=== PATIENT | male | born 1970 | race Caucasian/White ===

== ENCOUNTER 2016-05-16 14:57 | Emergency (ER) | payer MEDICAID ==
[~2016-05-16] VITALS: Ht 172.7 cm; Wt 103.4 kg
[~2016-05-16 14:57] MED LIST: ASPIRIN 81MG TA81 MG PO; ASPIRIN CHILDRE81 MG PO; CIPRO 500MG TA500 MG PO; CIPROFLOXACIN500 MG OR; FLAGYL 500MG.500 MG PO; FLAGYL500 M1 PO; FLAGYL500 MG PO; FLINTSTONES1 CTB PO; HYDROCODONE1 TABLET PO; LEVAQUIN500 MG PO; MEDROL 4MG. DOSE4 MG PO; METFORMIN 500M500 M1 PO; METRONIDAZOLE500 MG PO; MOVIPREP PO; NEOMYCIN SULFA500 MG PO; PRILOSEC OTC20 MG PO; PRILOSEC20 MG PO; PRILOSEC40 MG PO; TESSALON PERLE100 MG PO; VICODIN 5/500 T1 TAB PO; ZITHROMAX Z-PA250 M2 PO
--- NOTE | 2016-05-16 15:45 | Emergency Room Report ---
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 N Clinical Suspician of Infection? N Mental Status: 1 - Regular (Normal Baseline) Sepsis Risk:Low Sepsis Risk Have you (or family members/close friends) recently traveled outside the [place]? N If Yes, where/when: Have you had exposure to infectious disease within the past month? N TB? Other? Specify: Sharp, constant chest pain for the past four days. Reports a history of panic attacks. Denies calf pain. No kurtis SOB. Has had some occasional muscle spasms recently, but no fever. Also reports intermittently feeling lightheaded. No cephalgia. Has blurred vision occasionally. Is not taking his Metformin consistently. ALLERGIES Coded Allergies: diatrizoate meglumine (From GASTROGRAFIN) (Mild, 07/01/15) diatrizoate sodium (From GASTROGRAFIN) (Mild, 07/01/15) Home Medications Reported Medications Metformin HCl (Metformin) 750 MG PO DAILY #60 TAB OMEPRAZOLE MAGNESIUM (Prilosec OTC) 20 MG PO DAILY ASPIRIN (Aspirin) 81 MG PO DAILY History Medical History General CAD? No Angina: No [place]: No Hypertension? No Hyperlipidemia? Yes CHF? No DVT? No PE? No COPD? No Asthma? No Anemia? No GERD? No Gastric ulcers? No GI Bleed? No Hernia? No Thyroid Problems? No Hypothyroidism? No CVA? No Seizures? No Diabetes? Yes Insulin Dependent: No Insulin Pump: No Home FSBS? No Renal Insuffiency? No End Stage Renal Disease? No UTI? No Stones? Yes BPH? No GB Disease: No Nephritic Syndrome? No Asplenia? No Hepatitis? No Sickle Cell Disease? No Arthritis? No Migraines? No Cataracts? No Glaucoma? No MRSA? No HIV? No TB? No Anxiety? No Depression? No Cancer? No More? Yes Additional hx: DIVERTICULITIS Immunization Hx DT/Tetanus 5-10 Years Ago Flu REFUSES Pneumonia REFUSES Surgical Hx Previous Surgery?Y APPENDECTOMY 1990 COLONSCOPY 04/2009 UGI 04/2009 COLON RESECTION Family History Family Hx Diabetes Yes CAD No Hypertension No Hyperlipidemia Yes Cancer Yes TB No Social History Smoking Hx Smoker: Never Smoker Tobacco: No Alcohol Alcohol: Yes Review of Systems All Other Systems Reviewed and Negative ENT nose congestion. Cardiovascular chest pain Musculoskeletal see HPI Psychiatric/Neurological see HPI Physical Exam Vital Signs Vital Signs Date Time Temp Pulse Resp B/P Pulse O2 O2 Flow FiO2 Ox Delivery Rate 05/16 1523 98 05/16 1458 98.2 78 18 146/96 100 General Appearance normal appearance, WD/WN, no apparent distress Eye Exam - bilateral eye normal exam, bilateral eye PERRL, bilateral eye EOMI (no diplopia) Ear, Nose, Throat abnormal TM (R), abnormal TM (L) (serous OM B; OP wet) Neck normal inspection, non-tender, supple, full range of motion Respiratory Status Yes: trachea midline, chest symmetrical, non tender chest. No: respiratory distress, tender on palpation, use of accessory muscles, pain on inspiration, pain on expiration, productive cough, non productive cough. Lung Sounds bilateral: normal breath sounds, lungs clear. Cardiovascular normal exam, regular rate/rhythm, no peripheral edema, no gallop, no JVD, no murmur, no rub, normal peripheral pulses Gastrointestinal normal bowel sounds, normal exam, non tender, soft, no organomegaly, no guarding, no rebound Extremities non-tender, normal range of motion, normal inspection, normal capillary refill, no calf tenderness Neurologic alert, normal exam, no motor/sensory deficits, oriented x 3 (F to N normal refueling rampman equal), alert, speech clear and fluent Glascow Coma Scale Glascow Coma Scale Response Value EYE response: 4 Spontaneously 4 MOTOR response: 6 OBEYS 6 VERBAL response: 5 Oriented & Converses 5 Total 15 Reflexes DTR 2+ ankle (R), 2+ ankle (L) Mental status normal mood/affect Skin intact, normal color Lymphatic no adenopathy Medical Decision Making LABS/Meds/Orders Pt receiving controlled substance in ED? No Results/Orders Laboratory Tests 05/16/16 1510: Creatine Kinase 56, CK-MB (CK-2) Rel Index 2.3, CK and CKMB Interp 1.3, Troponin I < 0.02 05/16/16 1510: Sodium 136, Potassium 4.2, Chloride 101, Carbon Dioxide 24, BUN 8, Creatinine 1.1, Estimated Creat Clear 120, Estimated GFR (MDRD) 71, Glucose 166 H, Calcium 9.5, Total Bilirubin 0.3, AST 36, ALT 54, Alkaline Phosphatase 89, Total Protein 8.3 H, Albumin 4.2, Globulin 4.1 H, Albumin/Globulin Ratio 1.0 L, WBC 5.8, RBC 4.32 L, Hgb 9.0 L, Hct 30.5 L, MCV 70.5 L, RDW 17.7 H, Plt Count 284, MPV 8.5, Gran % 54.6, Gran # 3.1, Lymphocytes % 34.0, Monocytes % 5.8, Eosinophils % 4.3, Basophils % 1.4, Lymphocytes # 2.0, Monocytes # 0.3, Eosinophils # 0.3, Basophils # 0.1, PUBS MCHC 29.5 L, MCH 20.8 L Current Medication Orders Sig/Ravi Start time Last Medication Dose Route Stop Time Status Admin Aspirin 324 MG ONCE ONE 05/16 1530 DC 05/16 PO 05/16 1531 1545 Sodium Chloride 10 ML PRN PRN 05/16 1530 AC IV 05/17 1518 Aspirin 0 .STK-MED ONE 05/16 1529 DC .ROUTE Orders Procedure Date/time Status DIET-NOTHING BY MOUTH 05/16 D Active CARDIAC ENZYMES 05/16 1900 Active CARDIAC ENZYMES 05/16 1600 Complete 12 LEAD EKG-JUAN MANUEL (INITIAL) 05/16 1530 Active ELECTROCARDIOGRAM REQUEST 05/16 1520 Active PULSE OXIMETRY REQUEST 05/[address] HEAD REQ 05/16 1520 Complete CHEST(2 VIEWS-NOT PORTABLE) 05/16 1520 Active IV SALINE LOCK 05/16 1520 Active OXYGEN PER NURSE 05/16 1520 Active BRAIN PICKER 05/16 1520 Active COMPLETE METABOLIC PANEL 05/16 1520 Complete CBC WITH AUTO DIFF 05/16 1520 Complete CM/EKG CM/EKG EKG rate, NSR, rhythm, no evid. of ischemic chgs, no ectopy, normal QRS, normal [place], normal EKG (80) XRAY/CT/US XRAY/CT/US XRAY chest XR interpretation by reviewed by me Xray Results normal/NAD, no infiltrates, normal heart size, normal lung inflation sonido CT head CT interpretation by reviewed by me (report reviewed) Time results known: 1620 CT Results normal/NAD Departure Departure Time of Disposition 1621 Disposition DC Home or Self Care(routine) Clinical Impression Primary Impression: Atypical chest pain Secondary Impressions: Acute allergic serous otitis media Qualifiers: Laterality: bilateral Qualified Code: H65.113 - Acute and subacute allergic otitis media (mucoid) (sanguinous) (serous), bilateral Lightheadedness Condition STABLE Patient Instructions DI for Atypical Chest Pain Additional Instructions Get back on your Metformin as prescribed/on a regular basis; keep a food and symptom and blood sugar journal; monitor blood pressure and bring results to your family doctor at follow up in two to three weeks. Recommend Zyrtec or Claritin over the counter to diminish fluid behind inner ears, to help with lightheadedness. Discharge Counseling Counseled pt/family regarding diagnosis, test results, medications/RX, home care, follow up needs ED Critical Care Critical Care No at [phone]
--- NOTE | 2016-05-16 16:14 | RADIOLOGY REPORT PS360 ---
CT HEAD W/O CONTRAST HISTORY: ARM NUMBNESS ORDERING PHYSICIAN: YUDITH ROCHA PATIENT AGE: 46 years COMPARISON: None TECHNIQUE: Axial images obtained without contrast. Brain and bone windows reviewed. FINDINGS: No midline shift, mass effect, intracranial hemorrhage, hydrocephalus, or extra-axial fluid collection is evident. The calvarium has an unremarkable appearance. No mastoid effusion. The visualized paranasal sinuses are unremarkable. IMPRESSION: Negative CT head without contrast. No acute finding.
[2016-05-16 17:02] VITALS: BP 135/87
--- NOTE | 2016-05-17 08:21 | RADIOLOGY REPORT PS360 ---
CHEST(2 VIEWS-NOT PORTABLE) HISTORY: CHEST PAIN ORDERING PHYSICIAN: Ansley Rangel MD PATIENT AGE: 46 years COMPARISON: None available FINDINGS: The cardiomediastinal silhouette and pulmonary vascularity are within normal limits. The lungs are clear without infiltrates, suspicious nodules, or pleural effusions. No acute bony abnormalities. IMPRESSION: Negative chest, no acute finding
== END 2016-05-16 17:03 | disposition home or self-care (01) ==
LOC: ER 14:57
PROVIDERS: Emergency Medicine
DX: R07.89 Other chest pain (principal); H65.113 Acute and subacute allergic otitis media (mucoid) (sanguinous) (serous), bilateral; R42 Dizziness and giddiness; E11.9 Type 2 diabetes mellitus without complications

== ENCOUNTER 2017-02-12 13:20 | Emergency (ER) | payer MEDICAID ==
[~2017-02-12] VITALS: Ht 172.7 cm; Wt 79.4 kg
[~2017-02-12 13:20] MED LIST changes: +ANUSOL-HC2.5% EX
--- OUTSIDE RECORDS SUMMARY | 2017-02-12 14:01 | External Medical Summary Rpt | CCD ---
Author Author , ORESTES CARLISLE Address Unknown Phone [email or web address] Care Team Providers Care Clearance Diver Name Role Phone [facility] Unavailable Unavailable [facility], [facility] BRANDO MICHAELS Unavailable Unavailable [facility] Unavailable Unavailable [facility], [facility] Unavailable Unavailable [facility]PITAL P, [facility], PHAN Unavailable Unavailable [facility] Unavailable Unavailable [facility], [facility] [employer] Unavailable Unavailable [facility] [employer] [facility] [employer] Unavailable Unavailable [facility] [employer] JUAN MANUEL ZAMBRANO JR, JR Unavailable Unavailable [facility] Unavailable Unavailable [facility] Unavailable Unavailable [facility] Un[facility]available [facility], [facility], [facility] REES[facility], REESOR Unavailable Unavailable KESHAWN LIAO Unavailable Unavailable KESHAWN LIAO Unavailable Unavailable Purpose Continuity of Care Document - 06-10-2013 through 2016 Problems Code Diagnosis DOS Provider Status E119 TYPE 2 10-20-2016 [facility] WITHOUT COMPLICATIO NS K644 RESIDUAL 10-20-2016 [facility] K649 UNSPECIFIED 10-20-2016 [facility] HEMORRHOIDS [facility] K2270 BARRETTS 08-31-2016 [facility] WITHOUT DYSPLASIA R12 HEARTBURN 08-24-2016 [facility] Z1211 ENCOUNTER 08-24-2016 [facility] MALIGNANT MEDICAL NEOPLASM OF GROUP COLON Z9049 ACQUIRED 08-24-[address] 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 UNSPECIFIED Z0000 ENCOUNTER 07-05-2016 [facility] GEN ADULT MED EXAM W/O ABNORMAL FIND Z0100 ENCOUNTER 06-01-2016 [facility] EX[facility] EYES & VISION W/O ABNORMAL FIND [id number] ACUTE & 05-16-2016 [facility] P OTITS MEDIA BILATERAL R0789 OTHER CHEST 05-16-2016 [facility] P R079 CHEST PAIN 05-16-2016 [place] UNSPECIFIED [facility] R200 ANESTHESIA 05-16-2016 [place] OF [facility] R42 DIZZINESS 05-16-2016 [facility] P Allergies, Adverse Reactions, Alerts Clinical Alert Notifications Alert Diabetes: no A1C in the last 6 months Diabetes: no influenza vaccine in the last 365 days Diabetes: no urine protein screening in the last 365 days Medications Na ND Rx Da Fi Fi Am Da Di Ph RX Ph St me C No te ll ll ou ys ag ar # ys at rm s nt no ma ic us Or Da si cy ia de te s n re d OM 00 09 10 30 30 00 RI Ac EP 78 -2 -2 .0 00 TE ti RA 12 7- 0- 00 01 ve ZO 23 20 20 18 AI LE 40 17 17 26 D [address] AR MA 40 CY MG #3 93 CA 8 PS UL E AL 00 09 10 30 30 00 RI Ac PA 37 -2 -2 .0 00 TE ti AZ 84 7- 0- 00 01 ve OL 00 20 20 19 AI AM 30 17 17 72 D 5 27 PH 0. AR 5 MA MG CY TA #3 BL 93 ET 8 RA 11 09 10 59 1 00 RI Ac 82 -2 -2 2. 00 TE ti CI 23 2- 0- 00 01 ve TR 33 20 20 0 20 AI AT 00 17 17 08 D E 0 01 PH OF AR MA MA CY GN ES #3 IA [address] ME 00 09 10 2. 1 00 RI Ac TO 09 -2 -2 00 00 TE ti CL 32 2- 0- 0 01 ve OP 20 20 20 20 AI RA 40 17 17 08 D OK 1 02 PH DE AR 5 MA CY MG #3 TA 93 BL 8 ET RA 11 09 10 5. 1 00 RI Ac 82 -2 -2 00 00 TE ti BI 23 2- 0- 0 01 ve SA 34 20 20 20 AI CO 07 17 17 08 D DY 0 00 PH L AR EC MA 5 CY MG #3 93 TA 8 BL ET ME 42 08 09 60 30 00 RI Ac TF 80 -2 -2 .0 00 TE ti OR 60 8- 2- 00 01 ve OK 31 20 20 19 AI N 50 17 17 71 D HC 5 79 PH L AR 1, MA 00 CY 0 MG #3 93 TA 8 BL ET SE 69 08 09 30 30 00 RI Ac RT 09 -2 -2 .0 00 TE ti RA 70 8- 2- 00 01 ve LI 83 20 20 19 AI NE 40 17 17 71 D 2 80 PH HC AR L MA 50 CY MG #3 93 TA 8 BL ET AL 00 08 09 30 30 00 RI Ac PA 37 -2 -2 .0 00 TE ti AZ 84 8- 2- 00 01 ve OL 00 20 20 19 AI AM 30 17 17 72 D 5 27 PH 0. AR 5 MA MG CY TA #3 BL 93 ET 8 OM 00 08 09 30 30 00 RI Ac EP 78 -3 -2 .0 00 TE ti RA 12 0- 2- 00 01 ve ZO 23 20 20 18 AI LE 40 17 17 26 D [address] AR MA 40 CY MG #3 93 CA 8 PS UL E PA 10 08 09 28 15 00 WA Ac OC 63 -0 -0 .3 00 L- ti TO 10 8- 1- 50 07 MA ve SO 40 20 20 49 RT L- 70 17 17 65 HC 1 08 PH AR 2. MA 5% CY CR #5 EA 91 M OM 00 07 08 30 30 00 RI Ac EP 78 -2 -2 .0 00 TE ti RA 12 8- 5- 00 01 ve ZO 23 20 20 18 AI LE 40 17 17 26 D [address] AR MA 40 CY MG #3 93 CA 8 PS UL E AL 00 07 08 30 30 00 RI Ac PA 37 -2 -2 .0 00 TE ti AZ 84 8- 5- 00 01 ve OL 00 20 20 18 AI AM 30 17 17 99 D 5 18 PH 0. AR 5 MA MG CY TA #3 BL 93 ET 8 BU 00 06 08 6. 3 00 RI Ac PA 18 -2 -0 00 00 TE ti OP 50 8- 4- 0 01 ve IO 41 20 20 19 AI N 00 17 17 15 D HC 1 29 PH L AR SR MA CY 10 0 #3 MG 93 8 TA BL ET OM 00 06 07 30 30 00 RI Ac EP 78 -2 -2 .0 00 TE ti RA 12 9- 8- 00 01 ve ZO 23 20 20 18 AI LE 40 17 17 26 D [address] AR MA 40 CY MG #3 93 CA 8 PS UL E ME 42 06 07 60 30 00 RI Ac TF 80 -2 -2 .0 00 TE ti OR 60 9- 8- 00 01 ve OK 31 20 20 18 AI N 50 17 17 14 D HC 5 03 PH L AR 1, MA 00 CY 0 MG #3 93 TA 8 BL ET AL 00 06 07 30 30 00 RI Ac PA 37 -2 -2 .0 00 TE ti AZ 84 9- 8- 00 01 ve OL 00 20 20 18 AI AM 30 17 17 99 D 5 18 PH 0. AR 5 MA MG CY TA #3 BL 93 ET 8 HY 62 06 07 [address] 55 -3 -2 .0 00 L- ti OC 90 0- 8- 00 07 MA ve OR 43 20 20 49 RT TI 13 17 17 65 SO 0 08 PH NE AR MA 2. CY 5% #5 CR 91 EA M OM 00 06 06 30 30 00 RI Ac EP 78 -0 -3 .0 00 TE ti RA 12 2- 0- 00 01 ve ZO 23 20 20 18 AI LE 40 17 17 [address] D [address] AR MA 40 CY MG #3 93 CA 8 PS UL E VE 57 05 06 60 30 00 RI Ac NL 23 -2 -2 .0 00 TE ti AF 70 6- 3- 00 01 ve AX 17 20 20 18 AI IN 50 17 17 54 D E 1 56 PH HC AR L MA 75 CY MG #3 93 TA 8 BL ET AL 00 05 06 30 30 00 RI Ac PA 37 -2 -2 .0 00 TE ti AZ 84 6- 3- 00 01 ve OL 00 20 20 18 AI AM 30 17 17 56 D 5 12 PH 0. AR 5 MA MG CY TA #3 BL 93 ET 8 ME 42 05 06 60 30 00 RI Ac TF 80 -2 -1 .0 00 TE ti OR 60 2- 6- 00 01 ve OK 22 20 20 18 AI N 10 17 17 14 D HC 5 03 PH L AR 1, MA 00 CY 0 MG #3 93 TA 8 BL ET OM 00 05 06 30 30 00 RI Ac EP 78 -0 -0 .0 00 TE ti RA 12 4- 2- 00 01 ve ZO 23 20 20 18 AI LE 40 17 17 [address] AR MA 40 CY MG #3 93 CA 8 PS UL E ME 42 04 05 60 30 00 RI Ac TF 80 -2 -1 .0 00 TE ti OR 60 5- 9- 00 01 ve OK 22 20 20 18 AI N 10 17 17 14 D HC 5 03 PH L AR 1, MA 00 CY 0 MG #3 93 TA 8 BL ET TR 50 04 05 30 30 00 RI Ac AZ 11 -2 -1 .0 00 TE ti OD 10 5- 9- 00 01 ve ON 43 20 20 18 AI E 40 17 17 14 D 10 1 04 PH 0 AR MG MA CY TA BL #3 ET 93 8 AL 00 04 05 30 30 00 RI Ac PA 37 -2 -1 .0 00 TE ti AZ 84 5- 9- 00 01 ve OL 00 20 20 18 AI AM 30 17 17 14 D 5 61 PH 0. AR 5 MA MG CY TA #3 BL 93 ET 8 AL 00 03 04 30 30 00 RI Ac PA 37 -1 -0 .0 00 TE ti AZ 84 5- 7- 00 01 ve OL 00 20 20 17 AI AM 30 17 17 54 D 5 26 PH 0. AR 5 MA MG CY TA #3 BL 93 ET 8 AL 00 02 30 30 00 WA Ac PA 22 -0 -0 .0 00 L- ti AZ 82 4- 3- 00 04 MA ve OL 02 20 20 52 RT AM 95 17 17 92 0 62 PH 0. AR 5 MA MG CY TA #5 BL 91 ET Results Labs Lab Lab Date Result Refere Interp Status Commen Order Detail nces retati t Range on Bas Metab 1999 Pnl SerPl (01-25-2017 07:58) Glucose 156 70-130 complet BldC 017 mg/dL ed Glucomt 07:58 [facility] Comment: Serial Number: [id number]: [id number] Bas Metab 1999 Pnl SerPl (08-31-2016 07:16) Glucose 162 70-130 complet BldC 017 mg/dL ed Glucomt 07:16 [facility] Comment: Serial Number: [id number] Post Office Manager: [id number] CBC W Auto Differential panel in Blood (06-10-2013 13:30) 02-18-2 6.34.53 0.00T Normal complet 014 15.1449 HOUS - ed 13:30 6.733.3 0.20T 34.411. HOUS 427015. 733.15. 22.50.5 03.702. 100.300 .200.00 Procedures Procedure DOS [place] [address] [facility] PATHOLOGY GROSS&KENNETH ROSCOPIC EXAM TSTG ANS 99782 KESHAWN LIAO FUNCJ 7 VASOMOTOR ADRENERGI C INNERVAJ TSTG ANS 70332 KESHAWN LIAO FUN 7 CARDIOVAG AL INNERVAJ PARASYMP RHYTHM 29049 KESHAWN LIAO ECG 1-3 7 LEADS W/INTERPR ETATION & REPORT COMPREHEN 38226 [facility] SIVE 7 [place], [place], [place] [address] [facility] THYROID 7 [place], STIMULATI INC. INC. NG HORMONE TSH HEMOGLOBI 32484 [facility] N 7 [place], GLYCOSYLA INC. INC. GINO A1C LIPID 44342 [facility] PANEL 7 [place], INC. INC. OPHTH 94218 [facility] 7 XM&EVAL COMPRE NEW PT 1/> VST DETERMINA [address] [facility] TION 7 REFRACTIV E STATE ECG 31567 MARY ZAMBRANO JR ROUTINE 7 [facility] W/LEAST P 12 LDS I&R ONLY ECG 97801 MARY HERNANDEZ ROUTINE 7 [facility] ECG INC INC W/LEAST 12 LDS TRCG ONLY W/O I&R GLUC BLD 06533 MARY HERNANDEZ GLUC MNTR 7 [facility] DEV INC INC CLEARED FDA SPEC HOME USE COMPREHEN 27226 MARY HERNANDEZ SIVE 7 [facility] METABOLIC INC INC PANEL RADIOLOGI 66407 MARY HERNANDEZ C EXAM 7 [facility] CHEST 2 INC INC VIEWS FRONTAL&L ATERAL CREATINE 98627 MARY HERNANDEZ KINASE 7 [place] [address] MARY HERNANDEZ HEAD/BRAI 7 [facility] N W/O INC INC CONTRAST MATERIAL UNCLASSIF J3490 MARY HERNANDEZ IED DRUGS 7 [facility] INC INC CREATINE 19312 MARY HERNANDEZ KINASE MB 7 [facility] [place] [address] MARY PRESLEYON TROPONIN 7 [facility] QUANTITAT INC INC MAHESH BLOOD 28002 MARY MARY COUNT 7 [facility] COMPLETE INC INC AUTO&AUTO DIFRNTL WBC Encounters Encounter Start End Date Code Location Performer Type Date HOSPITAL MARY [facility] 7 [facility] OUTPATIEN INC T EMERGENCY 81737 [facility]/MODER SEVERITY EMERGENCY 24633 JOE PHAN 7 7 PHYSICIAN DEPARTMEN S, PLL T VISIT MODERATE SEVERITY OFFICE 38592 [facility] CONS[facility] 7 7 [facility] PATIENT 60 MIN OFFICE 65387 KESHAWN MORRISPATICAROLINA 7 7 T VISIT 15 MINUTES PERIODIC 19181 KESHAWN LIAO PREVENTIV 7 7 E MED EST PATIENT 40-64YRS EMERGENCY 50473 MARY 7 7 [facility] DEPARTMEN INC T VISIT MODERATE SEVERITY HOSPITAL MARY Forrest 7 [facility] OUTPATIEN INC T
--- OUTSIDE RECORDS SUMMARY | 2017-02-12 14:01 | External Medical Summary Rpt | CCD ---
Author Author , ORESTES CARLISLE Address Unknown Phone [email or web address] Care Team Providers Care Hole Digger Operator Name Role Phone [facility] Unavailable Unavailable MEDICAL GROUP, [facility] BRANDO MICHAELS Unavailable Unavailable [facility] Unavailable Unavailable [facility], [facility] Unavailable Unavailable HOSPITAL P, [facility] P PHAN, PHAN Unavailable Unavailable [facility] Unavailable Unavailable IMAGING ASS, [facility] IM[facility] [employer] [employer] Unavailable Unavailable [facility] [employer] [employer] [facility] [employer] [employer] Unavailable Unavailable [facility] [employer] [employer] JUAN MANUEL ZAMBRANO JR, JR Unavailable Unavailable [facility] Unavailable Unavailable [facility] Unavailable Unavailable [facility] Unavailable [facility]available [facility], Unavailable Unavailable PLLC, [facility], [facility] REESOR, REESOR Unavailable Unavailable KESHAWN LIAO Unavailable Unavailable KESHAWN LIAO Unavailable Unavailable Purpose Continuity of Care Document - 06-10-2013 through 2016 Problems Code Diagnosis DOS Provider Status E119 TYPE 2 10-20-2016 [facility] MELLITUS INC WITHOUT COMPLICATIO NS K644 RESIDUAL 10-20-2016 [facility] L SKIN TAGS INC K649 UNSPECIFIED 10-20-2016 [facility] HEMORRHOIDS [facility] K2270 BARRETTS 08-31-2016 [facility], ESOPHAGUS LLC WITHOUT DYSPLASIA R12 HEARTBURN 08-24-2016 [facility] MEDICAL GROUP Z1211 ENCOUNTER 08-24-2016 [facility] MALIGNANT MEDICAL NEOPLASM OF GROUP COLON Z9049 ACQUIRED 08-24-2016 [facility] SPEC PARTS MEDICAL DIGESTIVE GROUP TRACT G9009 OTHER 08-16-2016 K[facility]WN IDIOPATHIC PERIPHERAL AUTONOMIC NEUROPATHY I10 ESSENTIAL 08-15-2016 [facility] PRIMARY HYPERTENSIO N K219 GASTRO-ESOP 08-15-2016 K[facility]HAWN H REFLUX DISEASE WITHOUT ESOPHAGITIS E7800 PURE 07-05-2016 [facility] [employer] INC. TEROLEMIA UNSPECIFIED J301 ALLERGIC 07-05-2016 K[facility]WN RHINITIS DUE TO POLLEN H55771 BARRETTS 07-05-2016 K[facility] ESOPHAGUS WITH LOW GRADE DYSPLASIA R5382 CHRONIC 07-05-2016 [facility] [employer]IGUE [employer], INC. UNSPECIFIED Z0000 ENCOUNTER 07-05-2016 K[facility]WN GEN ADULT MED EXAM W/O ABNORMAL FIND Z0100 ENCOUNTER 06-01-2016 [facility] EXAM EYES & VISION W/O ABNORMAL FIND H61109 ACUTE & 05-16-2016 [facility] P OTITS MEDIA BILATERAL R0789 OTHER CHEST 05-16-2016 [facility] P R079 CHEST PAIN 05-16-2016 [place] UNSPECIFIED MEDICAL IMAGING ASS R200 ANESTHESIA 05-16-2016 [place] OF SKIN [facility]ICAL IMAGING ASS R42 DIZZINESS 05-16-2016 [facility] P Allergies, Adverse Reactions, Alerts Clinical Alert [...] 09 10 30 30 00 RI Ac VA 37 -2 -2 .0 00 TE ti [...] AI RA 40 17 17 08 D IA 1 02 PH DE AR 5 MA [...] OR 60 8- 2- 00 01 ve IA 31 20 20 19 AI N 50 [...] 08 09 30 30 00 RI Ac VA 37 -2 -2 .0 00 TE ti [...] #3 93 CA 8 PS UL E VA 10 08 09 28 15 00 WA [...] 07 08 30 30 00 RI Ac VA 37 -2 -2 .0 00 TE ti AZ 84 8- 5- 00 01 ve OL 00 20 20 18 AI AM 30 17 17 99 D 5 18 PH 0. AR 5 MA MG CY TA #3 BL 93 ET 8 BU 00 06 08 6. 3 00 RI Ac VA 18 -2 -0 00 00 TE ti [...] OR 60 9- 8- 00 01 ve IA 31 20 20 18 AI N 50 17 17 14 D HC 5 03 PH L AR 1, MA 00 CY 0 MG #3 93 TA 8 BL ET AL 00 06 07 30 30 00 RI Ac VA 37 -2 -2 .0 00 TE ti [...] 05 06 30 30 00 RI Ac VA 37 -2 -2 .0 00 TE ti [...] OR 60 2- 6- 00 01 ve IA 22 20 20 18 AI N 10 [...] OR 60 5- 9- 00 01 ve IA 22 20 20 18 AI N 10 [...] 04 05 30 30 00 RI Ac VA 37 -2 -1 .0 00 TE ti AZ 84 5- 9- 00 01 ve OL 00 20 20 18 AI AM 30 17 17 14 D 5 61 PH 0. AR 5 MA MG CY TA #3 BL 93 ET 8 AL 00 03 04 30 30 00 RI Ac VA 37 -1 -0 .0 00 TE ti AZ 84 5- 7- 00 01 ve OL 00 20 20 17 AI AM 30 17 17 54 D 5 26 PH 0. AR 5 MA MG CY TA #3 BL 93 ET 8 AL 00 02 30 30 00 WA Ac VA 22 -0 -0 .0 00 L- ti [...] complet BldC 017 mg/dL ed Glucomt 07:58 [facility] Comment: Serial Number: [id number]: [id number] Bas Metab 1999 Pnl SerPl (08-31-2016 07:16) Glucose 162 70-130 complet BldC 017 mg/dL ed Glucomt 07:16 [facility] Comment: Serial Number: [id number] Substitute Crossing Guard: [id number] CBC W Auto Differential panel in Blood (06-10-2013 13:30) 02-18-2 6.34.53 0.00T Normal complet 014 15.1449 HOUS - ed 13:30 6.733.3 0.20T 34.411. HOUS 666565. 733.15. 22.50.5 03.702. 100.300 .200.00 Procedures Procedure DOS [place] [address] [facility], BRANDO SURG 7 LLC PATHOLOGY GROSS&KENNETH ROSCOPIC EXAM TSTG ANS 33494 KESHAWN LIAO FUNCJ 7 VASOMOTOR ADRENERGI C INNERVAJ TSTG ANS 60634 KESHAWN LIAO FUN 7 CARDIOVAG AL INNERVAJ PARASYMP RHYTHM 33906 KESHAWN LIAO ECG 1-3 7 LEADS W/INTERPR ETATION & REPORT COMPREHEN 84326 [facility] OF SIVE 7 [place], [place], [place] [address] LAB[facility] OF [facility] OF THYROID 7 [place], STIMULATI INC. INC. NG HORMONE TSH HEMOGLOBI 30262 LAB[facility] OF LABONE OF N 7 [place], [place], GLYCOSYLA INC. INC. GINO A1C LIPID 54021 LAB[facility] OF [facility] OF PANEL 7 [place], INC. INC. OPHTH 35530 [facility] 7 XM&EVAL COMPRE NEW PT 1/> VST DETERMINA 03128 [facility] TION 7 REFRACTIV E STATE ECG 97324 MARY ZAMBRANO JR ROUTINE 7 [facility] W/LEAST P 12 LDS I&R ONLY ECG 84958 MARY HERNANDEZ ROUTINE 7 [facility] ECG INC INC W/LEAST 12 LDS TRCG ONLY W/O I&R GLUC BLD 54970 MARY HERNANDEZ GLUC MNTR 7 [facility] DEV INC INC CLEARED FDA SPEC HOME USE COMPREHEN 66512 MARY HERNANDEZ SIVE 7 [facility] METABOLIC INC INC PANEL RADIOLOGI 22205 MARY HERNANDEZ C EXAM 7 [facility] CHEST 2 INC INC VIEWS FRONTAL&L ATERAL CREATINE 12739 MARY HERNANDEZ KINASE 7 [place] [address] MARY HERNANDEZ HEAD/BRAI 7 [facility] N W/O INC INC CONTRAST MATERIAL UNCLASSIF J3490 MARY HERNANDEZ IED DRUGS 7 [facility] INC INC CREATINE 85818 MARY HERNANDEZ KINASE MB 7 [facility] H[facility] [address] MARY PRESLEYON TROPONIN 7 [facility] QUANTITAT INC INC MAHESH BLOOD 52440 MARY MARY COUNT 7 [facility] COMPLETE INC INC AUTO&AUTO DIFRNTL WBC Encounters Encounter Start End Date Code Location Performer Type Date HOSPITAL MARY Forrest 7 [facility] OUTPATIEN INC T EMERGENCY 07058 [facility]IS[facility] LOW/MODER SEVERITY EMERGENCY 03618 JOE PHAN 7 7 PHYSICIAN DEPARTMEN S, PLL T VISIT MODERATE SEVERITY OFFICE 79700 LATTER DAY REESOR CONSULTAT 7 7 HEALTH ION MEDICAL NEW/[facility] GROUP PATIENT 60 MIN OFFICE 74233 KESHAWN [place] 7 7 T VISIT 15 MINUTES PERIODIC 54254 KESHAWN LIAO PREVENTIV 7 7 E MED EST PATIENT 40-64YRS EMERGENCY 88779 MARY 7 7 [facility] DEPARTMEN INC T VISIT MODERATE SEVERITY HOSPITAL MARY Forrest 7 [facility] OUTPATIEN INC T
--- OUTSIDE RECORDS SUMMARY | 2017-02-12 14:03 | External Medical Summary Rpt | CCD ---
Author Author , ORESTES CARLISLE Address Unknown Phone [email or web address] Care Team Providers Care Coagulating Operator Name Role Phone [facility] Unavailable Unavailable MEDICAL GROUP, [facility] BALTAZAR, LEDESMA Unavailable Unavailable BRANDO MICHAELS Unavailable Unavailable [facility] Unavailable Unavailable INC, [facility] Unavailable Unavailable HOSPITAL P, [facility] P PHAN, PHAN Unavailable Unavailable [facility] Unavailable Unavailable IMAGING ASS, [facility] IMAGING [facility] [employer] [employer] Unavailable Unavailable [facility] [employer] [employer] [facility] [employer] [employer] Unavailable Unavailable [facility] [employer] [employer] JUAN MANUEL ZAMBRANO JR, JR Unavailable Unavailable [facility] Unavailable Unavailable [facility] Unavailable Unavailable [facility] Unavailable [facility], Unavailable Unavailable PLLC, [facility], [facility] REESOR, REESOR Unavailable Unavailable KESHAWN LIAO Unavailable Unavailable KESHAWN LIAO Unavailable Unavailable Purpose Continuity of Care Document - 05-16-2016 through 2016 Problems Code Diagnosis DOS Provider Status E119 TYPE 2 10-20-2016 [facility] MELLITUS INC WITHOUT COMPLICATIO NS K644 RESIDUAL 10-20-2016 [facility] SKIN TAGS INC K649 UNSPECIFIED 10-20-2016 [facility] HEMORRHOIDS [facility] K2270 BARRETTS 08-31-2016 [facility] ES[facility]HAG[facility] WITHOUT DYSPLASIA R12 HEARTBURN 08-24-2016 [facility] MEDICAL GROUP Z1211 ENCOUNTER 08-24-2016 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 TEROLEMIA UNSPECIFIED J301 ALLERGIC 07-05-2016 KESHAWN RHINITIS DUE TO POLLEN V26410 BARRETTS 07-05-2016 LIAO ESOPHAGUS WITH LOW GRADE DYSPLASIA R5382 CHRONIC 07-05-2016 [facility] [place] [employer] UNSPECIFIED Z0000 ENCOUNTER 07-05-2016 KESHAWN GEN ADULT MED EXAM W/O ABNORMAL FIND Z0100 ENCOUNTER 06-01-2016 [facility] EXAM EYES & VISION W/O ABNORMAL FIND I20896 ACUTE & 05-16-2016 [facility] P OTITS MEDIA BILATERAL R0789 OTHER CHEST 05-16-2016 [facility] P R079 CHEST PAIN 05-16-2016 [place] UNSPECIFIED [facility]ICAL IMAGING ASS R200 ANESTHESIA 05-16-2016 [place] OF SKIN MEDICAL IM[facility]ING ASS R42 DIZZINESS 05-16-2016 [facility] P Medications Na ND Rx Da Fi Fi Am Da Di Ph RX Ph St me C No te ll ll ou ys ag ar # ys at rm s nt no ma ic us Or Da si cy ia de te s n re d RA 11 09 10 5. 1 00 RI Ac 82 -2 -2 00 00 TE ti BI 23 2- 0- 0 01 ve SA 34 20 20 20 AI CO 07 17 17 08 D DY 0 00 PH L AR EC MA 5 CY MG #3 93 TA 8 BL ET RA 11 09 10 59 1 00 [...] AI RA 40 17 17 08 D FL 1 02 PH DE AR 5 MA CY MG #3 TA 93 BL 8 ET OM 00 09 10 30 30 00 RI Ac EP 78 -2 -2 .0 00 TE ti RA 12 7- 0- 00 01 ve ZO 23 20 20 18 AI LE 40 17 17 26 D [address] AR MA 40 CY MG #3 93 CA 8 PS UL E AL 00 09 10 30 30 00 RI Ac CO 37 -2 -2 .0 00 TE ti [...] CA 8 PS UL E ME 42 08 09 60 30 00 RI Ac TF 80 -2 -2 .0 00 TE ti OR 60 8- 2- 00 01 ve FL 31 20 20 19 AI N 50 [...] 08 09 30 30 00 RI Ac CO 37 -2 -2 .0 00 TE ti AZ 84 8- 2- 00 01 ve OL 00 20 20 19 AI AM 30 17 17 72 D 5 27 PH 0. AR 5 MA MG CY TA #3 BL 93 ET 8 CO 10 08 09 28 15 00 WA [...] 07 08 30 30 00 RI Ac CO 37 -2 -2 .0 00 TE ti AZ 84 8- 5- 00 01 ve OL 00 20 20 18 AI AM 30 17 17 99 D 5 18 PH 0. AR 5 MA MG CY TA #3 BL 93 ET 8 BU 00 06 08 6. 3 00 RI Ac CO 18 -2 -0 00 00 TE ti OP 50 8- 4- 0 01 ve IO 41 20 20 19 AI N 00 17 17 15 D HC 1 29 PH L AR SR MA CY 10 0 #3 MG 93 8 TA BL ET HY 62 06 07 30 [address] 55 -3 -2 .0 00 L- ti OC 90 0- 8- 00 07 MA ve OR 43 20 20 49 RT TI 13 17 17 65 SO 0 08 PH NE AR MA 2. CY 5% #5 CR 91 EA M OM 00 06 07 30 30 00 [...] OR 60 9- 8- 00 01 ve FL 31 20 20 18 AI N 50 17 17 14 D HC 5 03 PH L AR 1, MA 00 CY 0 MG #3 93 TA 8 BL ET AL 00 06 07 30 30 00 RI Ac CO 37 -2 -2 .0 00 TE ti AZ 84 9- 8- 00 01 ve OL 00 20 20 18 AI AM 30 17 17 99 D 5 18 PH 0. AR 5 MA MG CY TA #3 BL 93 ET 8 OM 00 09 26 30 30 00 RI Ac EP 78 -0 -3 .0 00 TE ti RA 12 2- 0- 00 01 ve ZO 23 20 20 18 AI LE 40 17 17 26 D [address] AR MA 40 CY MG #3 93 CA 8 PS UL E AL 00 05 06 30 30 00 RI Ac CO 37 -2 -2 .0 00 TE ti AZ 84 6- 3- 00 01 ve OL 00 20 20 18 AI AM 30 17 17 56 D 5 12 PH 0. AR 5 MA MG CY TA #3 BL 93 ET 8 VE 57 05 06 60 30 00 RI Ac NL 23 -2 -2 .0 00 TE ti AF 70 6- 3- 00 01 ve AX 17 20 20 18 AI IN 50 17 17 54 D E 1 56 PH HC AR L MA 75 CY MG #3 93 TA 8 BL ET ME 42 05 06 60 30 00 RI Ac TF 80 -2 -1 .0 00 TE ti OR 60 2- 6- 00 01 ve FL 22 20 20 18 AI N 10 [...] OR 60 5- 9- 00 01 ve FL 22 20 20 18 AI N 10 [...] 04 05 30 30 00 RI Ac CO 37 -2 -1 .0 00 TE ti AZ 84 5- 9- 00 01 ve OL 00 20 20 18 AI AM 30 17 17 14 D 5 61 PH 0. AR 5 MA MG CY TA #3 BL 93 ET 8 AL 00 03 04 30 30 00 RI Ac CO 37 -1 -0 .0 00 TE ti AZ 84 5- 7- 00 01 ve OL 00 20 20 17 AI AM 30 17 17 54 D 5 26 PH 0. AR 5 MA MG CY TA #3 BL 93 ET 8 AL 00 02 03 30 30 00 WA Ac CO 22 -0 -0 .0 00 L- ti AZ 82 4- 3- 00 04 MA ve OL 02 20 20 52 RT AM 95 17 17 92 0 62 PH 0. AR 5 MA MG CY TA #5 BL 91 ET Procedures Procedure DOS [place] [address] [facility] BRANDO SURG 7 [facility] PATHOLOGY GROSS&KENNETH ROSCOPIC EXAM TSTG ANS 36835 KESHAWN LIAO [facility] 7 VASOMOTOR ADRENERGI C INNERVAJ TSTG ANS 75273 KESHAWN LIAO [facility] 7 CARDIOVAG AL INNERVAJ PARASYMP RHYTHM 40144 KESHAWN LIAO ECG 1-3 7 LEADS W/INTERPR ETATION & REPORT HEMOGLOBI 74027 [facility] OF N 7 [place], [place], GLYCOSYLA INC. INC. GINO A1C COMPREHEN 55375 [facility] OF SIVE 7 [place], [place] [address] LAB[facility] OF [facility] OF THYROID 7 [place], STIMULATI INC. INC. NG HORMONE TSH LIPID 45147 [facility] OF PANEL 7 [place], INC. INC. DETERMINA 99992 [facility]AG BEARD TION 7 REFRACTIV E STATE OPHTH 06329 [facility] 7 XM&EVAL COMPRE NEW PT 1/> VST ECG 17698 MARY HERNANDEZ ROUTINE 7 [facility] ECG INC INC W/LEAST 12 LDS TRCG ONLY W/O I&[place] [address] MARY HERNANDEZ HEAD/BRAI 7 [facility] N W/O INC INC CONTRAST MATERIAL UNCLASSIF J3490 MARY HERNANDEZ IED DRUGS 7 [facility] INC INC CREATINE 50025 MARY HERNANDEZ KINASE 7 [facility] TOTAL INC INC CREATINE 96478 MARY HERNANDEZ KINASE MB 7 [facility] FRACTION INC INC ONLY COMPREHEN 65134 MARY HERNANDEZ SIVE 7 [facility] METABOLIC INC INC PANEL ECG 32909 MARY ZAMBRANO JR ROUTINE 7 [facility] W/LEAST P 12 LDS I&R ONLY GLUC BLD 35919 MARY HERNANDEZ GLUC MNTR 7 [facility] DEV INC [place] [address] MARY HERNANDEZ TROPONIN 7 [facility] QUANTITAT INC INC MAHESH BLOOD 71465 MARY HERNANDEZ COUNT 7 [facility] COMPLETE INC INC AUTO&AUTO DIFRNTL WBC RADIOLOGI 06665 [facility] C EXAM 7 MEDICAL CHEST 2 IMAGING VIEWS ASS FRONTAL&L ATERAL Encounters Encounter Start End Date Code Location Performer Type Date EMERGENCY 51653 JOE PHAN 7 7 PHYSICIAN DEPARTMEN S, PLLC T VISIT MODERATE SEVERITY HOSPITAL MARY Frank 7 7 [facility] OUTPATIEN INC T EMERGENCY 95903 MARY 7 7 [facility] DEPARTMEN INC T VISIT LOW/MODER SEVERITY OFFICE 48820 SHINTO REESOR CONSULTAT 7 7 HEALTH ION MEDICAL NEW/ESTAB GROUP PATIENT 60 MIN OFFICE 62489 KESHAWN SMITH 7 7 T VISIT 15 MINUTES PERIODIC 83448 KESHAWN LIAO PREVENTIV 7 7 E MED EST PATIENT 40-64YRS EMERGENCY 93718 MARY 7 7 [facility] INC T VISIT MODERATE SEVERITY [facility] MARY Forrest 7 [facility] OUTPATIEN INC T
--- OUTSIDE RECORDS SUMMARY | 2017-02-12 14:03 | External Medical Summary Rpt | CCD ---
Author Author , ORESTES CARLISLE Address Unknown Phone [email or web address] Care Team Providers Care Events Solutions Consultant Name Role Phone [facility] Unavailable Unavailable MEDICAL GROUP, [facility] BALTAZAR, LEDESMA Unavailable Unavailable BRANDO MICHAELS Unavailable Unavailable [facility] Unavailable Unavailable INC, [facility] Unavailable Unavailable HOSPITAL P, [facility] P PHAN, PHAN Unavailable Unavailable [facility] Unavailable Unavailable IMAGING ASS, [facility] IM[facility] [employer] INC., Unavailable Unavailable [facility] [employer] [employer] INC. [facility] [employer] [employer] INC., Unavailable Unavailable [facility] [employer] INC. JUAN MANUEL ZAMBRANO JR, JR Unavailable Unavailable [facility] Unavailable Unavailable [facility] Unavailable Unavailable [facility] Unavailable [facility]available [facility], Unavailable Unavailable PLLC, [facility], [facility] REES[facility], REESOR Unavailable Unavailable KESHAWN LIAO Unavailable Unavailable KESHAWN LIAO Unavailable Unavailable Purpose Continuity of Care Document - 05-16-2016 through 2016 Problems Code Diagnosis DOS Provider Status E119 TYPE 2 10-20-2016 [place] [facility] MELLITUS INC WITHOUT COMPLICATIO NS K644 RESIDUAL 10-20-2016 [place] [facility] L SKIN TAGS INC K649 UNSPECIFIED 10-20-2016 [facility] HEMORRHOIDS [facility] K2270 BARRETTS 08-31-2016 [facility] ESOPHAGUS LLC WITHOUT DYSPLASIA R12 HEARTBURN 08-24-2016 [facility] MEDICAL GROUP Z1211 ENCOUNTER 08-24-2016 [facility] MALIGNANT MEDICAL NEOPLASM OF GROUP COLON Z9049 ACQUIRED 08-24-2016 [facility] HEALTH SPEC PARTS MEDICAL DIGESTIVE GROUP TRACT G9009 OTHER 08-16-2016 KESHAWN IDIOPATHIC PERIPHERAL AUTONOMIC NEUROPATHY I10 ESSENTIAL 08-15-2016 KESHAWN PRIMARY HYPERTENSIO N K219 GASTRO-ESOP 08-15-2016 KESHAWN H REFLUX DISEASE WITHOUT ESOPHAGITIS E7800 PURE 07-05-2016 [facility] OF [employer], INC. TEROLEMIA UNSPECIFIED J301 ALLERGIC 07-05-2016 KESHAWN RHINITIS DUE TO POLLEN S36145 BARRETTS 07-05-2016 L[facility] ESOPHAGUS WITH LOW GRADE DYSPLASIA R5382 CHRONIC 07-05-2016 [facility] OF FATIGUE [employer] INC. UNSPECIFIED Z0000 ENCOUNTER 07-05-2016 K[facility]WN GEN ADULT MED EXAM W/O ABNORMAL FIND Z0100 ENCOUNTER 06-01-2016 [facility] EXAM EYES & VISION W/O ABNORMAL FIND J84041 ACUTE & 05-16-2016 [facility] P OTITS MEDIA BILATERAL R0789 OTHER CHEST 05-16-2016 [facility] P R079 CHEST PAIN 05-16-2016 [place] UNSPECIFIED MEDICAL IMAGING ASS R200 ANESTHESIA 05-16-2016 [place] OF SKIN MEDICAL IMAGING ASS R42 DIZZINESS 05-16-2016 [facility] P Medications Na ND Rx Da [...] AI RA 40 17 17 08 D [place] 1 02 PH DE AR 5 MA [...] 09 10 30 30 00 RI Ac DC 37 -2 -2 .0 00 TE ti [...] OR 60 8- 2- 00 01 ve [place] 31 20 20 19 AI N 50 [...] 08 09 30 30 00 RI Ac DC 37 -2 -2 .0 00 TE ti AZ 84 8- 2- 00 01 ve OL 00 20 20 19 AI AM 30 17 17 72 D 5 27 PH 0. AR 5 MA MG CY TA #3 BL 93 ET 8 DC 10 08 09 28 15 00 WA [...] 07 08 30 30 00 RI Ac DC 37 -2 -2 .0 00 TE ti AZ 84 8- 5- 00 01 ve OL 00 20 20 18 AI AM 30 17 17 99 D 5 18 PH 0. AR 5 MA MG CY TA #3 BL 93 ET 8 BU 00 06 08 6. 3 00 RI Ac DC 18 -2 -0 00 00 TE ti [...] OR 60 9- 8- 00 01 ve [place] 31 20 20 18 AI N 50 17 17 14 D HC 5 03 PH L AR 1, MA 00 CY 0 MG #3 93 TA 8 BL ET AL 00 06 07 30 30 00 RI Ac DC 37 -2 -2 .0 00 TE ti [...] 05 06 30 30 00 RI Ac DC 37 -2 -2 .0 00 TE ti [...] OR 60 2- 6- 00 01 ve [place] 22 20 20 18 AI N 10 [...] OR 60 5- 9- 00 01 ve [place] 22 20 20 18 AI N 10 [...] 04 05 30 30 00 RI Ac DC 37 -2 -1 .0 00 TE ti AZ 84 5- 9- 00 01 ve OL 00 20 20 18 AI AM 30 17 17 14 D 5 61 PH 0. AR 5 MA MG CY TA #3 BL 93 ET 8 AL 00 03 04 30 30 00 RI Ac DC 37 -1 -0 .0 00 TE ti AZ 84 5- 7- 00 01 ve OL 00 20 20 17 AI AM 30 17 17 54 D 5 26 PH 0. AR 5 MA MG CY TA #3 BL 93 ET 8 AL 00 02 03 30 30 00 WA Ac DC 22 -0 -0 .0 00 L- ti AZ 82 4- 3- 00 04 MA ve OL 02 20 20 52 RT AM 95 17 17 92 0 62 PH 0. AR 5 MA MG CY TA #5 BL 91 ET Procedures Procedure DOS Code [place] [address] [facility], BRANDO SURG 7 [facility] PATHOLOGY GROSS&KENNETH ROSCOPIC EXAM TSTG ANS 60749 KESHAWN LIAO [facility] 7 VASOMOTOR ADRENERGI C INNERVAJ TSTG ANS 02454 KESHAWN LIAO [facility] 7 CARDIOVAG AL INNERVAJ PARASYMP RHYTHM 50924 KESHAWN LIAO ECG 1-3 7 LEADS W/INTERPR ETATION & REPORT HEMOGLOBI 67872 [facility] OF N 7 [place], [place], GLYCOSYLA INC. INC. GINO A1C COMPREHEN 31686 LAB[facility] OF [facility] OF SIVE 7 [place], [place], [place] [address] LABONE OF [facility] OF THYROID 7 [place], STIMULATI INC. INC. NG HORMONE TSH LIPID 82919 LAB[facility] OF [facility] OF PANEL 7 [place], INC. INC. DETERMINA 66776 CHIRAG BEARD TION 7 REFRACTIV E STATE OPHTH 25813 [facility] 7 XM&EVAL COMPRE NEW PT 1/> VST ECG 76887 MARY HERNANDEZ ROUTINE 7 [facility] ECG INC INC W/LEAST 12 LDS TRCG ONLY W/O I&[place] [address] MARY HERNANDEZ HEAD/BRAI 7 [facility] N W/O INC INC CONTRAST MATERIAL UNCLASSIF J3490 MARY HERNANDEZ IED DRUGS 7 [facility] INC INC CREATINE 31072 MARY HERNANDEZ KINASE 7 [facility] TOTAL INC INC CREATINE 93676 MARY HERNANDEZ KINASE MB 7 [facility] FRACTION INC INC ONLY COMPREHEN 33160 MARY HERNANDEZ SIVE 7 [facility] METABOLIC INC INC PANEL ECG 98428 MARY ZAMBRANO JR ROUTINE 7 [facility] W/LEAST P 12 LDS I&R ONLY GLUC BLD 64561 MARY HERNANDEZ GLUC MNTR 7 [facility] DEV INC INC [place] [address] MARY HERNANDEZ TROPONIN 7 [facility] QUANTITAT INC INC MAHESH BLOOD 28903 MARY HERNANDEZ COUNT 7 [facility] COMPLETE INC INC AUTO&AUTO DIFRNTL WBC RADIOLOGI 64258 [facility] C EXAM 7 MEDICAL CHEST 2 IMAGING VIEWS ASS FRONTAL&L ATERAL Encounters Encounter Start End Date Code Location Performer Type Date EMERGENCY 44848 JOE PHAN 7 7 [facility] T VISIT MODERATE SEVERITY [facility] MARY Frank 7 7 [facility] OUTPATIEN INC T EMERGENCY 68922 MARY 7 7 [facility] DEPARTMEN INC T VISIT LOW/MODER SEVERITY OFFICE 42170 BUDDHIST REESOR CONSULTAT 7 7 HEALTH ION MEDICAL NEW/ESTAB GROUP PATIENT 60 MIN OFFICE 33599 KESHAWN SMITH 7 7 T VISIT 15 MINUTES PERIODIC 96185 KESHAWN LIAO PREVENTIV 7 7 E MED EST PATIENT [id number] EMERGENCY 18012 MARY 7 7 [facility] INC T VISIT MODERATE SEVERITY [facility] MARY Forrest 7 [facility] OUTPATIEN INC T
--- OUTSIDE RECORDS SUMMARY | 2017-02-12 14:04 | External Medical Summary Rpt | CCD ---
Demographics Preferred Language Frisian Marital Status Unknown Yarsani Affiliation Unknown Race Unknown Ethnic Group Unknown Author Author ORESTES Address Unknown Phone Immunization No patient found.
--- OUTSIDE RECORDS SUMMARY | 2017-02-12 14:04 | External Medical Summary Rpt ---
Author Author ROESTES Haskins, JUVENTINOAUSTYN Production Organization [employer] Address Unknown Phone Unavailable Results APWO Observa Value Referen Units Interpr Notes Date tion ce etation Range TEXT PRESYBETERIAN No No No No May 10 [facility] informa informa informa informa 2014 IS tion in tion in tion in tion in 2:23 AM [employer] source source source source D\.br\8 data data data data [facility]\ .br\[place] [address]\. br\852- [phone] 1\.br\\ .br\[facility]\ .br\011 8-0002\ .br\\.b r\Jaylin d\.br\\ .br\PAT IENT NAME: NARESH BUCHANAN 418\.br \: [id number]\. br\ATTE NDING: DATE OF EXAM: 5\.br\P RIMARY CARE: KARL LIAO LOCATIO N:\.br\ \.br\OR DERING PHYSICI AN: HUSSEIN MARINELLI MD \.br\NJ OCEDURE (s): ABDOMEN /PELVIS W/O CONTRAS T\.br\O RDER NUMBER( s): [id number] 38\.br\ \.br\CC :\.br\\ .br\\.b r\\.br\ \.br\Pr elimina ry Report\ .br\NAM E: NARESH BUCHANAN CECILY\. br\: 968\.br \ID#: [id number] 418\.br \ORDER# : [id number] 38\.br\ ACCESSI ON#: [id number] 38\.br\ [address]\. br\PRIM BABAK CARE PHYSICI AN: HUSSEIN MARINELLI MD\.br\ ORDERIN G PHYSICI AN: HUSSEIN MARINELLI MD\.br\ \.br\FA CILITY: [facility] d\.br\D ATE: 05/10/19 15\.br\ RADIOLO GIST NAME: Santosh Haq MD\.br\ CLINICA L HISTORY :\.br\L LQ PAIN\.b r\FINDI NGS:\.b r\FINDI NGS:\.b r\Focal wall thicken ing of the sigmoid colon is seen. There is surroun ding\.b r\parac olic fat strandi ng suggest ing inflamm ation. There is no free air or fluid\. br\omar ection. \.br\No signifi cant acute hepatob iliary, pancrea tic, splenic , renal or adrenal \.br\ab normali ties are observe d.\.br\ IMPRESS ION:\.b r\1) Above finding s are suggest carmina of diverti culitis .\.br\2 ) Follow- up is suggest ed, as the differe ntial diagnos is include s the distinc t\.br\p ossibil ity of an infiltr ating tumor.\ .br\F inal report may contain informa tion regardi ng compari son exams and\.br \comple mentary imaging modalit ies, and may describ e non-bob rgent finding s that\.b r\requi re follow- up. Review of final written report is marla lyons.\. br\Auth enticat ed by Santosh Haq MD on 05/10/19 15 2:23:58 AM\.br\ \.br\\. br\\.br \\.br\\ .br\\.b r\\.br\ \.br\\. br\\.br \\.br\\ .br\\.b r\DICTA GINO BY: [facility] [place].RADI OLOGY\. br\DICT ATED DATE/TI ME: 5 222\.b r\TRANS CRIBED DATE/TI ME: 5 222\.b r\\.br\ CC:\.br \ CBC W/AUTO Observa Value Referen Units Interpr Notes Date tion ce etation Range WBC 10.8 4.8 - THOUS Normal No May 10 10.8 informa 2014 tion in 1:27 AM source data RBC 4.51 4.70 - m/uL Low No May 10 6.10 informa 2014 tion in 1:27 AM source data HGB 15.4 14.0 - g/dL Normal No May 10 18.0 informa 2014 tion in 1:27 AM source data HCT 44 42 - 52 % Normal No May 10 informa 2014 tion in 1:27 AM source data MEAN 96.9 80.0 - fL High No May 10 CORPUSC 94.0 informa 2014 ULAR tion in 1:27 AM VOLUME source data MEAN 34.1 27.0 - uug High No May 10 CORPUSC 31.0 informa 2014 ULAR tion in 1:27 AM HEMOGLO source BIN data MEAN 35.2 30.0 - g/dL Normal No May 10 CORPUSC 37.0 informa 2014 ULAR tion in 1:27 AM HGB source CONC data RED 11.8 11.5 - % Normal No May 10 CELL 14.5 informa 2014 DISTRIB tion in 1:27 AM UTION source WIDTH data PLATELE 187 130 - THOUS Normal No May 10 T COUNT 400 informa 2014 tion in 1:27 AM source data NEUTROP 66.1 37.0 - % Normal No May 10 HILS % 80.0 informa 2014 (AUTO) tion in 1:27 AM source data LYMPHOC 23.9 10.0 - % Normal May 10 YTES % 50.0 informa 2014 (AUTO) tion in 1:27 AM source data MONOCYT 7.9 0.0 - % Normal No May 10 ES % 12.0 informa 2014 (AUTO) tion in 1:27 AM source data EOSINOP 1.7 0.0 - % Normal No May 10 HILS % 7.0 informa 2014 (AUTO) tion in 1:27 AM source data BASOPHI 0.40 0.00 - % Normal No May 10 LS % 2.50 informa 2014 (AUTO) tion in 1:27 AM source data NEUTROP 7.10 2.00 - THOUS High No May 10 HILS # 6.90 informa 2014 (AUTO) tion in 1:27 AM source data LYMPHOC 2.60 0.60 - THOUS Normal No May 10 YTES # 3.40 informa 2014 (AUTO) tion in 1:27 AM source data MONOCYT 0.90 0.00 - THOUS Normal No May 10 ES # 0.90 informa 2014 (AUTO) tion in 1:27 AM source data EOSINOP 0.20 0.00 - THOUS Normal No May 10 HILS # 0.70 informa 2014 (AUTO) tion in 1:27 AM source data BASOPHI 0.00 0.00 - THOUS Normal No May 10 LS # 0.20 informa 2014 (AUTO) tion in 1:27 AM source data CXR Observa Value Referen Units Interpr Notes Date tion ce etation Range TEXT PRESYBETERIAN No No No No Jun 10 [facility] informa informa informa informa 2013 IS tion in tion in tion in tion in 2:19 PM [employer] source source source source D\.br\8 data data data data [facility]\ .br\[place] [address]\. br\823- [phone] 1\.br\\ .br\[facility]\ .br\021 2-0115\ .br\\.b r\Jaylin d\.br\\ .br\PAT IENT NAME: NARESH BUCHANAN 418\.br \: 968 [id number]\. br\ATTE NDING: DATE OF EXAM: 4\.br\P RIMARY CARE: NONE LOCATIO N: ED\.br\ \.br\OR DERING PHYSICI AN: HUSSEIN MARINELLI MD\.br\ PROCEDU RE(s): CHEST PA LAT\.br \ORDER NUMBER( s): [id number] 75\.br\ \.br\CC :\.br\\ .br\\.b r\\.br\ \.br\EX AM: TWO VIEW CHEST\. br\\.br \CLINIC AL INFO: Chest pain.\. br\\.br \TECHNI QUE: PA and lateral views.\ .br\\.b r\FINDI NGS: The cardiom ediasti nal silhoue tte is within normal limits. The lungs\. br\are clear, with no focal opaciti es or effusio ns. There are no acute osseous \.br\ab normali ties.\. br\\.br \IMPRES CORBY: No acute cardiop ulmonar y process .\.br\\ .br\Rev iewed and signed by: PALLAVI SALDANA MD, 014 10:27:1 3\.br\T his documen t has been electro nically signed and is conside red final.\ .br\\.b r\\.br\ SR/5555 782\.br \ \ .br\\.b r\DICTA GINO BY: PALLAVI SALDANA MD\.br\ DICTATE D DATE/TI ME: 4 1419\.b r\TRANS CRIBED DATE/TI ME: 4 1431\.b r\\.br\ CC:\.br \ CBC W Auto Differential panel in Blood Observa Value Referen Units Interpr Notes Date tion ce etation Range 6.34.53 0.00 - THOUS Normal No Jun 10 15.1449 0.20 informa 2013 6.733.3 tion in 1:57 PM 34.411. source [id number]. data 733.15. 22.50.5 03.702. 100.300 .200.00 CBC W Auto Differential panel in Blood Observa Value Referen Units Interpr Notes Date tion ce etation Range 6.34.53 0.00 - THOUS Normal No May 18 15.1449 0.20 informa 2013 6.733.3 tion in 1:57 PM 34.411. source [id number]. data 733.15. 22.50.5 03.702. 100.300 .200.00 CBC W Auto Differential panel in Blood Observa Value Referen Units Interpr Notes Date tion ce etation Range 6.34.53 0.00 - THOUS Normal No b 18 15.1449 0.20 informa 2013 6.733.3 tion in 1:57 PM 34.411. source [id number]. data 733.15. 22.50.5 03.702. 100.300 .200.00 ISTAT TROPI Observa Value Referen Units Interpr Notes Date tion ce etation Range ISTAT 0.00 0.00 - ng/mL Normal No Jun 10 TROPI 0.05 informa 2013 tion in 1:57 PM source data
--- OUTSIDE RECORDS SUMMARY | 2017-02-12 14:04 | External Medical Summary Rpt | CCD ---
Demographics Preferred Language Nepali Marital Status Unknown Anglican Affiliation Unknown Race Unknown Ethnic Group Unknown Author Author [employer] Address Unknown Phone Immunization No patient found.
--- OUTSIDE RECORDS SUMMARY | 2017-02-12 14:04 | External Medical Summary Rpt ---
Author Author ORESTES Haskins, JUVENTINOAUSTYN Production Organization [employer] Address Unknown Phone Unavailable Results APWO Observa Value Referen Units Interpr Notes Date tion ce etation Range TEXT JAINISM No No No No May 10 [facility] informa informa informa informa 2014 IS tion in tion in tion in tion in 2:23 AM [facility] [facility] source source source source D\.br\8 data data data data [facility]\ .br\[place] [address]\. br\759- [phone] 1\.br\\ .br\[facility]\ .br\011 8-0002\ .br\\.b r\Jaylin d\.br\\ .br\PAT IENT NAME: NARESH BUCHANAN 418\.br \: 968 [id number]\. br\ATTE NDING: DATE OF EXAM: 5\.br\P RIMARY CARE: KARL LIAO LOCATIO N:\.br\ \.br\OR DERING PHYSICI AN: HUSSEIN MARINELLI MD \.br\NE OCEDURE (s): ABDOMEN /PELVIS W/O CONTRAS T\.br\O RDER NUMBER( s): [id number] 38\.br\ \.br\CC :\.br\\ .br\\.b r\\.br\ \.br\Pr elimina ry Report\ .br\NAM E: NARESH BUCHANAN CECILY\. br\: 968\.br \ID#: [id number] 418\.br \ORDER# : [id number] 38\.br\ ACCESSI ON#: [id number] 38\.br\ [address]\. br\PRIM BABAK CARE PHYSICI AN: HUSSEIN MARINELLI MD\.br\ ORDERIN G PHYSICI AN: HUSSEIN MARINELLI MD\.br\ \.br\FA CILITY: [facility] d\.br\D ATE: 05/10/19 15\.br\ RADIOLO GIST [...] Notes Date tion ce etation Range TEXT JAINISM No No No No Jun 10 [facility] informa informa informa informa 2013 IS tion in tion in tion in tion in 2:19 PM [employer] source source source source D\.br\8 data data data data [facility]\ .br\[place] [address]\. br\377- [phone] 1\.br\\ .br\[facility]\ .br\021 0-0115\ .br\\.b r\Jaylin d\.br\\ .br\PAT IENT NAME: NARESH BUCHANAN 418\.br \: 968 [id number]\. br\ATTE NDING: DATE OF EXAM: 4\.br\P RIMARY CARE: NONE LOCATIO N: ED\.br\ \.br\OR DERING PHYSICI AN: HUSSEIN MARINELLI MD\.br\ PROCEDU RE(s): CHEST PA LAT\.br \ORDER NUMBER( s): [id number] 75\.br\ \.br\CC :\.br\\ .br\\.b r\\.br\ \.br\EX AM: [...] 6.733.3 tion in 1:57 PM 34.411. source [id number]. data 733.15. 22.50.5 03.702. 100.300 .200.00 CBC W Auto Differential panel in Blood Observa Value Referen Units Interpr Notes Date tion ce etation Range 6.34.53 0.00 - THOUS Normal No May 18 15.1449 0.20 informa 2013 6.733.3 tion in 1:57 PM 34.411. source [id number]. data 733.15. 22.50.5 03.702. 100.300 .200.00 CBC W Auto Differential panel in Blood Observa Value Referen Units Interpr Notes Date tion ce etation Range 6.34.53 0.00 - THOUS Normal No b 18 15.1449 0.20 informa 2013 6.733.3 tion in 1:57 PM 34.411. source [id number]. data 733.15. 22.50.5 03.702. 100.300 .200.00 ISTAT TROPI Observa Value Referen Units Interpr Notes Date tion ce etation Range ISTAT 0.00 0.00 - ng/mL Normal No Jun 10 TROPI 0.05 informa 2013 tion in 1:57 PM source data
--- NOTE | 2017-02-12 14:26 | Emergency Room Report ---
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 N Clinical Suspician of Infection? N Mental Status: 1 - Regular (Normal Baseline) Sepsis Risk:Low Sepsis Risk Have you (or family members/close friends) recently traveled outside the [place]? N If Yes, where/when: Have you had exposure to infectious disease within the past month? TB? Other? Specify: Patient with ongoing hemorrhoidal pain. Hurts w/ bowel movements. Underwent colonoscopy on January 25, 2017, per Dr. Maldonado and has been using Xylocaine gel PRN for hemorrhoidal pain, but continues to have discomfort. Seen by this MD in September as well as in the ER for other visits regarding hemorrhoidal pain. Has a hx of diverticulitis but no symptoms today. Is dieting and denies any unintentional weight loss. No rectal bleeding. Bowels move well and he keeps them soft by eating lots of roughage. ALLERGIES Coded Allergies: diatrizoate meglumine (From GASTROGRAFIN) (Mild, 02/12/17) diatrizoate sodium (From GASTROGRAFIN) (Mild, 02/12/17) Home Medications Active Scripts Hydrocortisone (Anusol-Hc) 30 GM EX Q4HP PRN hemorrhoid #1 TUBE Ref 1 Prov: 10/20/16 Reported Medications Metformin HCl (Metformin) 750 MG PO DAILY #60 TAB OMEPRAZOLE MAGNESIUM (Prilosec OTC) 20 MG PO DAILY ASPIRIN (Aspirin) 81 MG PO DAILY History Medical History General CAD? No Angina: No [place]: No Hypertension? No Hyperlipidemia? Yes CHF? No DVT? No PE? No COPD? No Asthma? No Anemia? No GERD? No Gastric ulcers? No GI Bleed? No Hernia? No Thyroid Problems? No Hypothyroidism? No CVA? No Seizures? No Diabetes? Yes Insulin Dependent: No Insulin Pump: No Home FSBS? No Renal Insuffiency? No End Stage Renal Disease? No UTI? No Stones? Yes BPH? No GB Disease: No Nephritic Syndrome? No Asplenia? No Hepatitis? No Sickle Cell Disease? No Arthritis? No Migraines? No Cataracts? No Glaucoma? No MRSA? No HIV? No TB? No Anxiety? No Depression? No Cancer? No More? Yes Additional hx: DIVERTICULITIS Immunization Hx Ped.Immunizations UTD Yes DT/Tetanus 5-10 Years Ago Flu REFUSES Pneumonia REFUSES Surgical Hx Previous Surgery?Y APPENDECTOMY 1989 COLONSCOPY 04/2009 UGI 04/2009 COLON RESECTION Family History Family Hx Diabetes Yes CAD No Hypertension No Hyperlipidemia Yes Cancer Yes TB No Social History Smoking Hx Smoker: Never Smoker Tobacco: No Type Cigarettes Are you/the child exposed to second-hand smoke: Yes Alcohol Alcohol: Yes Review of Systems All Other Systems Reviewed and Negative Gastrointestinal see HPI Physical Exam Vital Signs Vital Signs Date Time Temp Pulse Resp B/P Pulse O2 O2 Flow FiO2 Ox Delivery Rate 02/12 1349 98.3 80 18 125/80 99 General Appearance normal appearance, WD/WN, no apparent distress Eye Exam - bilateral eye normal exam, bilateral eye PERRL Respiratory Status No: respiratory distress. Cardiovascular no peripheral edema Gastrointestinal normal bowel sounds, normal exam, non tender, soft, no organomegaly, no pulsatile mass, no guarding, no rebound Extremities normal range of motion Strength 5 Upper Ext (L), 5 Upper Ext (R), 5 Lower Ext (L), 5 Lower Ext (R) Rectal soft hemorrhoids at about three o'clock and about 8'oclock noted; not at all thrombosed or bleeding, no rectal fissures; no lesions or drainage noted Nurse present during exam? Yes (Binta) Neurologic alert, normal exam, no motor/sensory deficits Medical Decision Making LABS/Meds/Orders Pt receiving controlled substance in ED? No Departure Departure Time of Disposition 1540 Disposition DC Home or Self Care(routine) Clinical Impression Primary Impression: Hemorrhoids Qualifiers: Hemorrhoid type: unspecified Qualified Code: K64.9 - Unspecified hemorrhoids Condition STABLE Referrals JANETH HINOJOSA Patient Instructions Hemorrhoids (Alternative Therapy) Additional Instructions Continue sitz baths, Xylocaine gel, hydrocortisone cream, keep stools soft, see Dr. Hinojosa for follow up; Rx Anusol suppositories as directed. Discharge Counseling Counseled pt/family regarding diagnosis, medications/RX, home care, follow up needs Prescriptions Current Visit Scripts STARCH (Anusol Supp) 1 SUP [place] Q8HP PRN hemorrhoids #20 SUP ED Critical Care Critical Care No at 1555
--- NOTE | 2017-02-12 14:26 | Emergency Room Report ---
History of Present Illness Time Seen by [id number] Presenting Problem in Triage Pt arrived:Walked Presenting Problem:CONTINUED ISSUES WITH HEMORRHOIDS Onset of symptoms date/time:/ or onset unknown for:MEDICAL HX UNKNOWN Treatment Prior to Arrival: HEALTH MANAGER Provided by: Sepsis Risk Assessment: Temp: 98.3 B/P: 125/80 MAP: 95 Pulse: 80 Resp: 18 Recent fever? N Clinical Suspician of Infection? N Mental Status: 1 - Regular (Normal Baseline) Sepsis Risk:Low Sepsis Risk Have you (or family members/close friends) recently traveled outside the [place]? N If Yes, where/when: Have you had exposure to infectious disease within the past month? TB? Other? Specify: Patient with ongoing hemorrhoidal pain. Hurts w/ bowel movements. Underwent colonoscopy on January 25, 2017, per Dr. Maldonado and has been using Xylocaine gel PRN for hemorrhoidal pain, but continues to have discomfort. Seen by this MD in September as well as in the ER for other visits regarding hemorrhoidal pain. Has a hx of diverticulitis but no symptoms today. Is dieting and denies any unintentional weight loss. No rectal bleeding. Bowels move well and he keeps them soft by eating lots of roughage. ALLERGIES Coded Allergies: diatrizoate meglumine (From GASTROGRAFIN) (Mild, 02/12/17) diatrizoate sodium (From GASTROGRAFIN) (Mild, 02/12/17) Home Medications Active Scripts Hydrocortisone (Anusol-Hc) 30 GM EX Q4HP PRN hemorrhoid #1 TUBE Ref 1 Prov: 10/20/16 Reported Medications Metformin HCl (Metformin) 750 MG PO DAILY #60 TAB OMEPRAZOLE MAGNESIUM (Prilosec OTC) 20 MG PO DAILY ASPIRIN (Aspirin) 81 MG PO DAILY History Medical History General CAD? No Angina: No [place]: No Hypertension? No Hyperlipidemia? Yes CHF? No DVT? No PE? No COPD? No Asthma? No Anemia? No GERD? No Gastric ulcers? No GI Bleed? No Hernia? No Thyroid Problems? No Hypothyroidism? No CVA? No Seizures? No Diabetes? Yes Insulin Dependent: No Insulin Pump: No Home FSBS? No Renal Insuffiency? No End Stage Renal Disease? No UTI? No Stones? Yes BPH? No GB Disease: No Nephritic Syndrome? No Asplenia? No Hepatitis? No Sickle Cell Disease? No Arthritis? No Migraines? No Cataracts? No Glaucoma? No MRSA? No HIV? No TB? No Anxiety? No Depression? No Cancer? No More? Yes Additional hx: DIVERTICULITIS Immunization Hx Ped.Immunizations UTD Yes DT/Tetanus 5-10 Years Ago Flu REFUSES Pneumonia REFUSES Surgical Hx Previous Surgery?Y APPENDECTOMY 1989 COLONSCOPY 04/2009 UGI 04/2009 COLON RESECTION Family History Family Hx Diabetes Yes CAD No Hypertension No Hyperlipidemia Yes Cancer Yes TB No Social History Smoking Hx Smoker: Never Smoker Tobacco: No Type Cigarettes Are you/the child exposed to second-hand smoke: Yes Alcohol Alcohol: Yes Review of Systems All Other Systems Reviewed and Negative Gastrointestinal see HPI Physical Exam Vital Signs Vital Signs Date Time Temp Pulse Resp B/P Pulse O2 O2 Flow FiO2 Ox Delivery Rate 02/12 1349 98.3 80 18 125/80 99 General Appearance normal appearance, WD/WN, no apparent distress Eye Exam - bilateral eye normal exam, bilateral eye PERRL Respiratory Status No: respiratory distress. Cardiovascular no peripheral edema Gastrointestinal normal bowel sounds, normal exam, non tender, soft, no organomegaly, no pulsatile mass, no guarding, no rebound Extremities normal range of motion Strength 5 Upper Ext (L), 5 Upper Ext (R), 5 Lower Ext (L), 5 Lower Ext (R) Rectal soft hemorrhoids at about three o'clock and about 8'oclock noted; not at all thrombosed or bleeding, no rectal fissures; no lesions or drainage noted Nurse present during exam? Yes (Binta) Neurologic alert, normal exam, no motor/sensory deficits Medical Decision Making LABS/Meds/Orders Pt receiving controlled substance in ED? No Departure Departure Time of Disposition 1540 Disposition DC Home or Self Care(routine) Clinical Impression Primary Impression: Hemorrhoids Qualifiers: Hemorrhoid type: unspecified Qualified Code: K64.9 - Unspecified hemorrhoids Condition STABLE Referrals JANETH HINOJOSA Patient Instructions Hemorrhoids (Alternative Therapy) Additional Instructions Continue sitz baths, Xylocaine gel, hydrocortisone cream, keep stools soft, see Dr. Hinojosa for follow up; Rx Anusol suppositories as directed. Discharge Counseling Counseled pt/family regarding diagnosis, medications/RX, home care, follow up needs Prescriptions Current Visit Scripts STARCH (Anusol Supp) 1 SUP [place] Q8HP PRN hemorrhoids #20 SUP ED Critical Care Critical Care No at 1558
[2017-02-12] MEDS ORDERED: ANUSOL SUPP1 SUP PR (15:42)
[2017-02-12 15:51] VITALS: BP 123/78
== END 2017-02-12 15:52 | disposition home or self-care (01) ==
LOC: ER 13:20
DX: K64.9 Unspecified hemorrhoids (principal); Z88.8 Allergy status to other drugs, medicaments and biological substances; E11.9 Type 2 diabetes mellitus without complications; Z79.82 Long term (current) use of aspirin